=== PATIENT | female | born 2000 | race Caucasian/White ===

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

== ENCOUNTER 2023-01-19 02:43 | Emergency (ER) | payer OTHER ==
[~2023-01-19] VITALS: Ht 165.1 cm; Wt 67.6 kg
[~2023-01-19 02:43] MED LIST: CEFADROXIL500 MG PO
[2023-01-19 05:21] LABS: HEMOGLOBIN 12.9 g/dL (12.0-15.00); MEAN CORPUSCULAR HEMOGLOBIN 29.2 pg (27.00-32.0); MEAN CORPUSCULAR HGB CONC 33.2 g/dl (32.0-36.0); PLATELET COUNT 288 K/uL (150-450); RED BLOOD COUNT 4.44 M/uL (4.00-6.00)
[2023-01-19 06:21] LABS: ALBUMIN 4.1 gm/dL (3.4-5.0); BILIRUBIN TOTAL 0.14 mg/dL (0.3-1.2); CALCIUM 9.1 mg/dL (8.5-10.1); CREATININE SERUM 0.64 mg/dL (0.55-1.02); GFR 118.3; GLOBULINA 4.2 G/DL (2.4-3.5); POTASSIUM 3.7 mEq/L (3.5-5.1); TOTAL PROTEIN 8.3 gm/dL (6.4-8.2)
[2023-01-20] MEDS ORDERED: PEPCID20 MG PO (11:01)
[2023-01-20] MEDS ORDERED: ZOFRAN8 MG PO (11:01)
== END 2023-01-19 07:20 | disposition home or self-care (01) ==
LOC: ER 02:44
PROVIDERS: General Practice
DX: K52.89 Other specified noninfective gastroenteritis and colitis (principal); R11.2 Nausea with vomiting, unspecified

== ENCOUNTER 2023-01-20 07:26 | Emergency (ER) | payer OTHER ==
[~2023-01-20] VITALS: Ht 165.1 cm; Wt 67.6 kg
[2023-01-20 08:35] LABS: HEMATOCRIT 37.7 % (36.0-45.00); HEMOGLOBIN 12.2 g/dL (12.0-15.00); MEAN CELL VOLUME 88.4 fL (80.00-100.00); MEAN CORPUSCULAR HEMOGLOBIN 28.5 pg (27.00-32.0); MEAN CORPUSCULAR HGB CONC 32.2 g/dl (32.0-36.0); PLATELET COUNT 267 K/uL (150-450); RED BLOOD COUNT 4.27 M/uL (4.00-6.00)
[2023-01-20 08:59] LABS: CALCIUM 9.2 mg/dL (8.5-10.1); CREATININE SERUM 0.71 mg/dL (0.55-1.02); GFR 104.95; POTASSIUM 4.18 mEq/L (3.5-5.1)
[2023-01-20 09:19] LABS: PH,URINE 6.5 (5.0-8.0); URINE APPEARANCE Clear; URINE BILIRRUBIN Negative (NEGATIVE); URINE BLOOD Negative; URINE COLOR Yellow; URINE GLUCOSE Negative (NEGATIVE); URINE LEUKOCYTE Trace; URINE NITRATE Negative; URINE PROTEIN Negative (NEGATIVE); URINE UROBILINOGEN 0.2 E.U./dl
[2023-01-20 09:23] LABS: URINE EPITHELIAL CELLS 8.8 uL (0.0-38.8); URINE RBC 2.5 uL (0.0-20.8); URINE WBC 26.4 uL (0.0-23.2)
[2023-01-20] MEDS ORDERED: ZOFRAN8 MG PO (11:01)
[2023-01-20] MEDS ORDERED: PEPCID20 MG PO (11:01)
== END 2023-01-20 11:16 | disposition home or self-care (01) ==
LOC: ER 07:26
PROVIDERS: General Practice
DX: K52.89 Other specified noninfective gastroenteritis and colitis (principal); R10.31 Right lower quadrant pain

== ENCOUNTER 2023-03-13 21:30 | Emergency (ER) | payer OTHER ==
[~2023-03-13] VITALS: Ht 165.1 cm; Wt 64.4 kg
[~2023-03-13 21:30] MED LIST changes: +PEPCID20 MG PO; +ZOFRAN8 MG PO
[2023-03-14 01:20] LABS: HEMATOCRIT 35.8 % (36.0-45.00); HEMOGLOBIN 12.2 g/dL (12.0-15.00); MEAN CELL VOLUME 86.2 fL (80.00-100.00); MEAN CORPUSCULAR HEMOGLOBIN 29.3 pg (27.00-32.0); MEAN CORPUSCULAR HGB CONC 33.9 g/dl (32.0-36.0); PLATELET COUNT 238 K/uL (150-450); RED BLOOD COUNT 4.16 M/uL (4.00-6.00); RED CELL DISTRIBUTION WIDTH 13.4 % (11.5-14.5)
[2023-03-14 01:43] LABS: URINE APPEARANCE Clear; URINE BILIRRUBIN Negative (NEGATIVE); URINE BLOOD Negative; URINE COLOR Yellow; URINE GLUCOSE Negative (NEGATIVE); URINE LEUKOCYTE Trace; URINE NITRATE Negative; URINE PROTEIN Negative (NEGATIVE); URINE UROBILINOGEN 0.2 E.U./dl
[2023-03-14 01:44] LABS: URINE BACTERIA 1399.7 uL (0.0-1933); URINE EPITHELIAL CELLS 41.8 uL (0.0-38.8); URINE RBC 2.5 uL (0.0-20.8); URINE WBC 26.1 uL (0.0-23.2)
[2023-03-14 02:07] LABS: CALCIUM 8.9 mg/dL (8.5-10.1); CREATININE SERUM 0.6 mg/dL (0.55-1.02); GFR 127.45; POTASSIUM 3.61 mEq/L (3.5-5.1)
== END 2023-03-14 05:10 | disposition home or self-care (01) ==
LOC: ER 21:30
PROVIDERS: General Practice
DX: O99.891 Other specified diseases and conditions complicating pregnancy (principal); R10.2 Pelvic and perineal pain; Z3A.01 Less than 8 weeks gestation of pregnancy

== ENCOUNTER 2023-03-15 10:31 | Emergency (ER) | payer OTHER ==
[~2023-03-15] VITALS: Ht 165.1 cm; Wt 65.8 kg
[2023-03-15 12:07] LABS: HEMATOCRIT 36.2 % (36.0-45.00); HEMOGLOBIN 12.2 g/dL (12.0-15.00); MEAN CELL VOLUME 87.2 fL (80.00-100.00); MEAN CORPUSCULAR HEMOGLOBIN 29.3 pg (27.00-32.0); MEAN CORPUSCULAR HGB CONC 33.6 g/dl (32.0-36.0); PLATELET COUNT 242 K/uL (150-450); RED BLOOD COUNT 4.15 M/uL (4.00-6.00)
[2023-03-15 12:17] LABS: PH,URINE 6.5 (5.0-8.0); URINE APPEARANCE Clear; URINE BILIRRUBIN Negative (NEGATIVE); URINE BLOOD Moderate; URINE COLOR Yellow; URINE GLUCOSE Negative (NEGATIVE); URINE LEUKOCYTE Trace; URINE NITRATE Negative; URINE PROTEIN Negative (NEGATIVE)
[2023-03-15 12:18] LABS: URINE BACTERIA 430.8 uL (0.0-1933); URINE EPITHELIAL CELLS 38.1 uL (0.0-38.8); URINE RBC 2.1 uL (0.0-20.8); URINE WBC 12.8 uL (0.0-23.2)
[2023-03-15 12:44] LABS: CREATININE SERUM 0.73 mg/dL (0.55-1.02); GFR 101.64; POTASSIUM 3.7 mEq/L (3.5-5.1)
== END 2023-03-15 15:03 | disposition home or self-care (01) ==
LOC: ER 10:32
PROVIDERS: General Practice
DX: O20.8 Other hemorrhage in early pregnancy (principal); Z3A.01 Less than 8 weeks gestation of pregnancy; O41.8X10 Other specified disorders of amniotic fluid and membranes, first trimester, not applicable or unspecified; R10.2 Pelvic and perineal pain

== ENCOUNTER 2023-05-29 23:47 | Emergency (ER) | payer OTHER ==
[~2023-05-29] VITALS: Ht 165.1 cm; Wt 67.1 kg
[2023-05-30] MEDS ORDERED: PRENATAL + DHA1 EAC1 (00:10)
[2023-05-30] MEDS ORDERED: OxyCODONE HCL/APAP UD (PERCOCET) PO STA (02:24)
[2023-05-30 02:41] LABS: HEMATOCRIT 30.9 % (36.0-45.00); HEMOGLOBIN 10.7 g/dL (12.0-15.00); MEAN CELL VOLUME 87.1 fL (80.00-100.00); MEAN CORPUSCULAR HEMOGLOBIN 30.2 pg (27.00-32.0); MEAN CORPUSCULAR HGB CONC 34.7 g/dl (32.0-36.0); PLATELET COUNT 253 K/uL (150-450); RED BLOOD COUNT 3.55 M/uL (4.00-6.00); RED CELL DISTRIBUTION WIDTH 13.6 % (11.5-14.5)
== END 2023-05-30 05:16 | disposition home or self-care (01) ==
LOC: ER 23:47
DX: O26.892 Other specified pregnancy related conditions, second trimester (principal); Z3A.19 19 weeks gestation of pregnancy; M53.3 Sacrococcygeal disorders, not elsewhere classified

== ENCOUNTER 2023-06-22 22:40 | Outpatient (CLI) | payer OTHER ==
[~2023-06-22 22:40] MED LIST changes: +PRENATAL + DHA1 EAC1
== END 2023-06-23 10:04 | disposition home or self-care (01) ==
LOC: OBS/DEL 22:40
PROVIDERS: ATTEND Obstetrics & Gynecology
DX: O26.892 Other specified pregnancy related conditions, second trimester (principal); Z3A.20 20 weeks gestation of pregnancy

== ENCOUNTER 2024-04-17 14:12 | Emergency (ER) | payer OTHER ==
[~2024-04-17] VITALS: Ht 165.1 cm; Wt 63.5 kg
[2024-04-17 15:18] LABS: HEMATOCRIT 39.7 % (36.0-45.00); HEMOGLOBIN 13.4 g/dL (12.0-15.00); MEAN CELL VOLUME 86.1 fL (80.00-100.00); MEAN CORPUSCULAR HEMOGLOBIN 29.1 pg (27.00-32.0); MEAN CORPUSCULAR HGB CONC 33.8 g/dl (32.0-36.0); PLATELET COUNT 251 K/uL (150-450); RED BLOOD COUNT 4.62 M/uL (4.00-6.00); RED CELL DISTRIBUTION WIDTH 14.2 % (11.5-14.5)
[2024-04-17] MEDS ORDERED: AMOX1TAB5 PO (17:06)
[2024-04-17] MEDS ORDERED: ACETAMINOPHEN 500 MG GEL..CAP PO STA (17:10)
[2024-04-17] MEDS ORDERED: ACETAMINOPHEN 500 MG GEL..CAP PO ONE (17:27)
== END 2024-04-17 17:31 | disposition home or self-care (01) ==
LOC: ER 14:12
DX: J02.9 Acute pharyngitis, unspecified (principal); Z20.822 Contact with and (suspected) exposure to COVID-19